=== PATIENT | male | born 1985 | race American Indian/Alaskan Native ===

== ENCOUNTER 2018-02-09 19:12 | Observation (INO) | payer MEDICAID ==
[2018-02-09 19:21] VITALS: BMI 25.0
--- NOTE | 2018-02-09 19:35 | ED PDOC ---
Arrival/HPI - General Chief Complaint: Psychiatric Evaluation Time Seen by Provider: 02/09/18 19:27 Historian: Patient - History of Present Illness Narrative History of Present Illness (Text): 02/09/18 19:32 32 year old male, no significant pmh, nkda, complaining of feeling suicidal and homocidal ideation today. Pt. stated that he has been feeling suicidal recently with homicidal ideation, no alcohol or drug abuse?, no auditory or visual hallucination, no chest pain or shortness of breath, no night sweat, no palpitation, no rash, no other medical or psychological complaints. Past Medical History - Provider Review Nursing Documentation Reviewed: Yes - Psychiatric Hx Substance Use: Yes Family/Social History - Physician Review Nursing Documentation Reviewed: Yes Family/Social History: Unknown Family HX Smoking Status: Heavy Smoker > 10 Cigarettes Daily Hx Alcohol Use: Yes Frequency of alcohol use: Daily Hx Substance Use: Yes Substance used: Coccaine, Marijuana, [place] Allergies/Home Meds Allergies/Adverse Reactions: Allergies shellfish derived Allergy (Verified 02/09/18 19:21) ANAPHYLAXIS Review of Systems - Review of Systems Constitutional: absent: Fatigue, Fevers Eyes: absent: Vision Changes ENT: absent: Hearing Changes Respiratory: absent: SOB, Cough Cardiovascular: absent: Chest Pain Gastrointestinal: absent: Abdominal Pain, Nausea, Vomiting Musculoskeletal: absent: Arthralgias, Back Pain Skin: absent: Rash, Pruritis Neurological: absent: Headache, Dizziness Psychiatric: Depression, Suicidal Ideation. absent: Anxiety Physical Exam - Systems Exam Head: Present: Atraumatic, Normocephalic Pupils: Present: PERRL Extroacular Muscles: Present: EOMI Conjunctiva: Present: Normal Mouth: Present: Moist Mucous Membranes Neck: Present: Normal Range of Motion Respiratory/Chest: Present: Clear to Auscultation, Good Air Exchange. No: Respiratory Distress, Accessory Muscle Use Cardiovascular: Present: Regular Rate and Rhythm, Normal S1, S2. No: Murmurs Abdomen: No: Tenderness, Distention, Peritoneal Signs, Rebound, Guarding Back: Present: Normal Inspection Upper Extremity: Present: Normal Inspection. No: Cyanosis, Edema Lower Extremity: Present: Normal Inspection. No: Edema Neurological: Present: GCS=15, Speech Normal, Motor Func Grossly Intact, Gait Normal, Memory Normal Skin: Present: Warm, Dry, Rashes (visible multiple cutting scar noted on the bilateral upper extremities and body), Normal Color Psychiatric: Present: Alert, Oriented x 3, Normal Insight, Normal Concentration , Suicidal Ideation, Homicidal Ideation Medical Decision Making ED Course and Treatment: 02/09/18 19:34 -labs -ekg -cxr -PES notified -One on One -Observe and reassess 02/09/18 19:38 -EKG: Sinus Tachycardia @ 111 BPM, early repolarization with non-specific ST changes on the V2-V4, no T wave inversion, no previous ekg available for comparison. EKG reviewed with Dr. Ambrosio and agreed on adding troponin -Chest xray: no active disease -Labs show no acute findings except 2308, negative troponin. Pt. has no cardiopulomn -Pending Urinalysis and UDS -Pt. can not be medically clear at this time, will need admission for IV hydration, 2000cc bolus IV ordered with potassium 20meq as the potassium is 3.4 -paging the hospitalist. 02/09/18 20:28 -I spoke to the medical service representative and Dr. Belle about this case, labs/radiology result discussed, they will admit to the hospitalist service and will follow up the care and any pending labs. - Lab Interpretations Lab Results: 02/09/18 19:20 02/09/18 19:20 Lab Results 02/09/18 19:20: Alcohol, Quantitative < 10 02/09/18 19:20: Salicylates < 1 L, Acetaminophen < 10.0 L 02/09/18 19:20: Sodium 135, Potassium 3.4 L, Chloride 99, Carbon Dioxide 28, Anion Gap 12, BUN 17, Creatinine 1.2, Est GFR ( Amer) > 60, Est GFR (Non- Af Amer) > 60, Random Glucose 88, Calcium 9.5, Total Bilirubin 2.0 H, AST 88 H, ALT 67 H, Alkaline Phosphatase 47, Lactate Dehydrogenase 842 H, Total Creatine Kinase 2308 H, CK-MB (CK-2) 15.4 H, CK-MB (CK-2) % 0.7 L, Troponin I < 0.01, Total Protein 7.1, Albumin 4.2, Globulin 2.8, Albumin/Globulin Ratio 1.5 02/09/18 19:20: WBC 10.5, RBC 5.07, Hgb 16.0, Hct 44.1, MCV 87.0, MCH 31.6, MCHC 36.3, RDW 12.9, Plt Count 239, MPV 10.1, Gran % 74.9 H, Lymph % (Auto) 16.0 L, [place] % (Auto) 7.3 H, Eos % (Auto) 1.6, Baso % (Auto) 0.2, Gran # 7.88 H , Lymph # (Auto) 1.7, [place] # (Auto) 0.8 H, Eos # (Auto) 0.2, Baso # (Auto) 0.02 - RAD Interpretation Radiology Orders: 02/09/18 19:31 CHEST PORTABLE [RAD] Stat Heavy Forging Machine Operator: Radiologist - EKG Interpretation EKG Interpretation (Text): 02/09/18 19:40 EKG: Sinus Tachycardia @ 111 BPM, early repolarization with non-specific ST changes on the V2-V4, no T wave inversion, no previous ekg available for comparison. Interpreted by ED Physician: Yes Type: 12 lead EKG Comparison: No previous EKG avail. - Medication Orders Current Medication Orders: Sodium Chloride (Sodium Chloride 0.9%) 1,000 mls @ 999 mls/hr IV .Q1H1M STA Stop: 02/09/18 21:21 Sodium Chloride (Sodium Chloride 0.9%) 1,000 mls @ 999 mls/hr IV .Q1H1M STA Stop: 02/09/18 21:21 - PA / LITHOGRAPHIC PRESS OPERATOR / Resident Statement /DO has reviewed & agrees with the documentation as recorded. Disposition/Present on Arrival - Present on Arrival Any Indicators Present on Arrival: No History of DVT/PE: No History of Uncontrolled Diabetes: No Urinary Catheter: No History of Decub. Ulcer: No History Surgical Site Infection Following: None - Disposition Have Diagnosis and Disposition been Completed?: Yes Diagnosis: Suicidal ideation, Rhabdomyolysis, Hypokalemia Disposition: HOSPITALIZED Disposition Time: 19:34 Patient Plan: Admission Patient Problems: Current Active Problems Problem Status Onset Rhabdomyolysis Acute Suicidal ideation Acute Condition: STABLE Referrals: Jack Regalado, [Primary Care Provider] - Follow up with primary Forms: [email or web address] ([place])
[2018-02-09 19:48] LABS: BASO # 0.02 K/mm3 (0.0-2.0); BASO % 0.2 % (0.0-3.0); EOS # 0.2 (0.0-0.7); EOS % 1.6 % (1.5-5.0); GRAN # 7.88 (1.4-6.5); GRAN % 74.9 % (50.0-68.0); LYMPH # 1.7 (1.2-3.4); MEAN CORPUSCULAR HEMOGLOBIN 31.6 pg (25.0-35.0); MEAN CORPUSCULAR HGB CONC 36.3 g/dl (31.0-37.0); MEAN PLATELET VOLUME 10.1 fl (7.0-11.0); MONO # 0.8 (0.1-0.6); MONO % 7.3 % (1.0-6.0); RBC 5.07 10^6/uL (3.5-6.1); RED CELL DISTRIBUTION WIDTH 12.9 % (11.5-14.5); WHITE BLOOD COUNT 10.5 10^3/ul (4.5-11.0)
[2018-02-09 19:56] LABS: ALB/GLOB RATIO 1.5 (1.1-1.8); ALBUMIN 4.2 g/dL (3.0-4.8); ALT/SGPT 67 U/L (7-56); AST/SGOT 88 U/L (17-59); BLOOD UREA NITROGEN 17 mg/dL (7-21); CALCIUM 9.5 mg/dL (8.4-10.5); GFR AFRICAN-AMERICAN > 60; GFR NON-AFRICAN AMERICAN > 60
[2018-02-09 19:57] LABS: ACETAMINOPHEN < 10.0 ug/ml (10.0-20.0); SALICYLATE < 1 mg/dL (2.0-20.0)
[2018-02-09 20:07] LABS: TROPONIN I < 0.01 ng/mL
[2018-02-09] MEDS ORDERED: Sodium Chloride 0.9% 1,000 ML IV STA ×2 (20:21)
[2018-02-09 20:22] LABS: CK MB% 0.7 % (2.5-3.0); CK-MB 15.4 ng/mL (0.0-3.6)
[2018-02-09] MEDS ORDERED: Potassium Chloride 20 mEq ER Tab PO STA ×2 (20:37→22:24)
[2018-02-09] MEDS: Oxycodone/Acetaminophen 5/325 mg Tab PO PRN (22:48)
--- NOTE | 2018-02-09 23:34 | CP.PCM.HP ---
<Thomas Walker - Last Filed: 02/10/18 04:13> History of Present Illness - History of Present Illness History of Present Illness: Medicine H&P: Dr. Belle Chief Complaint: Suicidal and Homicidal Ideations; Leg pain HPI: 32 year old male with no past medical history presented with suicidal and homocidal ideations. Patient states that he drank alcohol, snorted cocaine, smoked marijuana and started walking for 72 hours straight. Unfortunately no baseline functionality or mentation is available for the patient. History is limited 2/2 patient's mentation Review of Systems: 12 point ROS elicited but limited 2/2 to patient's mental status, negative except as per HPI Surgical History: Patient denies Medical History: Patient denies Allergies: Shellfish Social History: Admits to alcohol, tobacco, cocaine and marijuana Home Meds: Patient denies Family History: Patient denies PMD: None Present on Admission - Present on Admission Any Indicators Present on Admission: No Past Patient History - Past Social History Smoking Status: Heavy Smoker > 10 Cigarettes Daily - PSYCHIATRIC Hx Substance Use: Yes Meds Allergies/Adverse Reactions: Allergies Allergy/AdvReac Type Severity Reaction Status Date / Time shellfish derived Allergy ANAPHYLAXIS Verified 02/09/18 19:21 Physical Exam - Constitutional Appears: Unkempt, Agitated Additional comments: Patient exhibiting signs of extrapyramidal symptoms such as lip-smacking and twitching - Head Exam Head Exam: ATRAUMATIC, NORMAL INSPECTION, NORMOCEPHALIC - Eye Exam Eye Exam: EOMI, Normal appearance, PERRL Pupil Exam: NORMAL ACCOMODATION, PERRL - ENT Exam ENT Exam: Mucous Membranes Moist, Normal Exam - Neck Exam Neck exam: Positive for: Normal Inspection - Respiratory Exam Respiratory Exam: Clear to Auscultation Bilateral, NORMAL BREATHING PATTERN - Cardiovascular Exam Cardiovascular Exam: REGULAR RHYTHM - GI/Abdominal Exam GI & Abdominal Exam: Normal Bowel Sounds, Soft. absent: Tenderness - Extremities Exam Extremities exam: Positive for: normal inspection - Back Exam Back exam: NORMAL INSPECTION - Neurological Exam Neurological exam: Alert, CN II-XII Intact, Normal Gait, Oriented x3, Reflexes Normal - Psychiatric Exam Psychiatric exam: Normal Affect, Normal Mood - Skin Skin Exam: Dry, Intact, Normal Color, Warm Results - Vital Signs Recent Vital Signs: Last Vital Signs Temp 98.0 F 02/09/18 21:46 Pulse 107 H 02/09/18 21:46 Resp 18 02/09/18 21:46 BP 115/65 02/09/18 21:46 Pulse Ox 100 02/09/18 21:46 - Labs Result Diagrams: 02/09/18 19:20 02/09/18 19:20 Assessment & Plan - Assessment and Plan (Free Text) Assessment: 32 year old male presents with homicidal suicidal ideations. Labs revealed elevated CK indicative of rhabdomyolysis. Patient's renal function cannot be compared to a baseline, but creatinine is high normal at 1.2. UA showed ketones. Tox screen showed positive for marijuana but not cocaine, although patient admitted to cocaine use on interview. Patient's liver enzymes mildly elevated. Initial trope and EKG negative for AMI. Plan Rhabdomyolysis, possibly 2/2 exertion while intoxicated - NS @ 150 mls/hr; avoid nephrotoxic medications like toradol - Percocet PRN - Monitor renal function Cocaine Use - Serial tropes, EKG Homicidal/Suicidal Ideations - 1:1 - Psych Consult: Dr. Spencer Prophylaxis - Protonix/Lovenox <Isrrael Belle - Last Filed: 02/10/18 05:43> Results - Vital Signs Recent Vital Signs: Last Vital Signs Temp 97.8 F 02/10/18 00:14 Pulse 97 H 02/10/18 00:14 Resp 16 02/10/18 00:14 BP 110/61 02/10/18 00:14 Pulse Ox 98 02/09/18 21:51 - Labs Result Diagrams: 02/09/18 19:20 02/09/18 19:20 Labs: Laboratory Results - last 24 hr 02/09/18 02/09/18 23:10 23:10 Urine Color Yellow Urine Appearance Clear Urine pH 6.0 Ur Specific [place] 1.020 Urine Protein Negative Urine Glucose (UA) Negative Urine Ketones 15 H Urine Blood Negative Urine Nitrate Negative Urine Bilirubin Negative Urine Urobilinogen 0.2 Ur Leukocyte Esterase Negative Urine Opiates Screen Negative Urine Methadone Screen Negative Ur Barbiturates Screen Negative Ur Phencyclidine Scrn Negative Ur Amphetamines Screen Negative U Benzodiazepines Scrn Negative U Oth Cocaine Metabols Negative U Cannabinoids Screen Positive H Attending/Attestation - Attestation I have personally seen and examined this patient.: Yes I have fully participated in the care of the patient.: Yes I have reviewed all pertinent clinical information: Yes Notes (Text): 02/10/18 05:41 Patient was seen when he was in ISO room in the ER. Medical record was reviewed. Agree with history,physical examination, assessment and plan.
[2018-02-09 23:51] LABS: URINE BILIRUBIN NEGATIVE (NEGATIVE); URINE BLOOD NEGATIVE (NEGATIVE); URINE GLUCOSE (UA) NEGATIVE (NEGATIVE); URINE LEUKOCYTE ESTERASE NEGATIVE Leu/uL (NEGATIVE); URINE PROTEIN NEGATIVE mg/dL (<30 mg/dL); URINE UROBILINOGEN 0.2 E.U./dL (<1 E.U./dL)
[2018-02-09 23:53] LABS: URINE APPEARANCE CLEAR (CLEAR); URINE COLOR YELLOW (YELLOW)
[2018-02-10 00:16] LABS: BARBITURATES, UR NEGATIVE (NEGATIVE); BENZODIAZEPINES, UR NEGATIVE (NEGATIVE); OPIATES, UR NEGATIVE (NEGATIVE); PHENCYCLIDINE, UR NEGATIVE (NEGATIVE)
[2018-02-10] MEDS: Sodium Chloride 0.9% 1,000 ML IV SCH (01:26)
[2018-02-10] MEDS ORDERED: Pantoprazole 40 mg EC Tab PO SCH (06:00)
[2018-02-10 08:06] LABS: BASO # 0.03 K/mm3 (0.0-2.0); BASO % 0.4 % (0.0-3.0); EOS # 0.2 (0.0-0.7); EOS % 3.1 % (1.5-5.0); GRAN # 5.35 (1.4-6.5); GRAN % 71.5 % (50.0-68.0); HEMOGLOBIN 13.5 g/dL (14.0-18.0); LYMPH # 1.2 (1.2-3.4); LYMPH % 15.4 % (22.0-35.0); MEAN CELL VOLUME 88.5 fl (80.0-105.0); MEAN CORPUSCULAR HEMOGLOBIN 31.2 pg (25.0-35.0); MEAN CORPUSCULAR HGB CONC 35.2 g/dl (31.0-37.0); MEAN PLATELET VOLUME 9.7 fl (7.0-11.0); MONO # 0.7 (0.1-0.6); MONO % 9.6 % (1.0-6.0); RBC 4.33 10^6/uL (3.5-6.1); WHITE BLOOD COUNT 7.5 10^3/ul (4.5-11.0)
[2018-02-10] MEDS ORDERED: Potassium Chloride 20 mEq ER Tab PO ONE (08:17)
[2018-02-10 08:26] LABS: ALB/GLOB RATIO 1.3 (1.1-1.8); ALBUMIN 3.2 g/dL (3.0-4.8); ALT/SGPT 57 U/L (7-56); AST/SGOT 55 U/L (17-59); BLOOD UREA NITROGEN 14 mg/dL (7-21); CALCIUM 8.3 mg/dL (8.4-10.5); GFR AFRICAN-AMERICAN > 60; GFR NON-AFRICAN AMERICAN > 60
[2018-02-10 08:27] LABS: TROPONIN I < 0.01 ng/mL
--- NOTE | 2018-02-10 08:39 | RAD ---
HISTORY: medical clearance COMPARISON: No prior. FINDINGS: LUNGS: No active pulmonary disease. PLEURA: No significant pleural effusion identified, no pneumothorax apparent. CARDIOVASCULAR: Normal. OSSEOUS STRUCTURES: No significant abnormalities. VISUALIZED UPPER ABDOMEN: Normal. OTHER FINDINGS: None. IMPRESSION: No active disease. Concordant results with the preliminary interpretation rendered by the emergency department physician procedure.
[2018-02-10 08:43] LABS: CK-MB 11.4 ng/mL (0.0-3.6)
[2018-02-10] MEDS: Oxycodone/Acetaminophen 5/325 mg Tab PO PRN ×3 (10:50→19:54)
--- NOTE | 2018-02-10 10:50 | US ---
HISTORY: Leg pain and swelling. Evaluate for DVT PHYSICIAN(S): Luc Palma MD. TECHNIQUE: Duplex sonography and color-flow Doppler with graded compression were used to evaluate the deep venous systems of both lower extremities. FINDINGS: The visualized deep venous systems of both lower extremities are sonographically normal and compressible. Normal wave forms and augmentation are seen. There is no sonographic evidence for deep venous thrombosis in the visualized segments of both lower extremities. IMPRESSION: No sonographic evidence for deep venous thrombosis in the visualized segments of both lower extremities.
[2018-02-10] MEDS: Enoxaparin 40 mg Syringe SC SCH (10:53)
[2018-02-10 12:51] LABS: TROPONIN I < 0.01 ng/mL
[2018-02-10 12:54] LABS: CK MB% 0.9 % (2.5-3.0); CK-MB 8.8 ng/mL (0.0-3.6)
--- NOTE | 2018-02-10 13:08 | CT ---
PROCEDURE: CT Abdomen and Pelvis without intravenous contrast HISTORY: RLQ, RUQ, right inguinal pain COMPARISON: None. TECHNIQUE: Without contrast. Contrast Dose: Radiation dose: Total exam DLP = Total exam DLP = 421 mGy-cm. This CT exam was performed using one or more of the following dose reduction techniques: Automated exposure control, adjustment of the mA and/or kV according to patient size, and/or use of iterative reconstruction technique. FINDINGS: LOWER THORAX: Unremarkable. LIVER: Unremarkable. No gross lesion or ductal dilatation. GALLBLADDER AND BILE DUCTS: Unremarkable. PANCREAS: Unremarkable. No gross lesion or ductal dilatation. SPLEEN: Unremarkable. ADRENALS: Unremarkable. No mass. KIDNEYS AND URETERS: Unremarkable. No hydronephrosis. No solid mass. VASCULATURE: Unremarkable. No aortic aneurysm. BOWEL: Evaluation of the bowel and the appendix is limited by lack of IV and oral contrast as well as very little abdominal fat. A repeat study with oral and IV contrast may be indicated if there is a strong clinical suspicion of colitis or appendicitis APPENDIX: Not visualize PERITONEUM: Unremarkable. No free fluid. No free air. LYMPH NODES: Unremarkable. No enlarged lymph nodes. BLADDER: Unremarkable. REPRODUCTIVE: Unremarkable. BONES: No acute fracture. OTHER FINDINGS: None. IMPRESSION: Evaluation of the bowel and the appendix is limited by lack of IV and oral contrast as well as very little abdominal fat. A repeat study with oral and IV contrast may be indicated if there is a strong clinical suspicion of colitis or appendicitis There is no evidence of urolithiasis
--- NOTE | 2018-02-10 14:00 | CP.PCM.PN ---
<Romeo Badillo - Last Filed: 02/10/18 13:55> Subjective - Date & Time of Evaluation Date of Evaluation: 02/10/18 (q) Time of Evaluation: 13:57 - Subjective Subjective: Patient seen and examined this AM. Patient reportedly agitated this AM locking himself in bathroom. Patient reports bowel movements this AM that were soft to liquid. Reports RLQ and RUQ pain that is constant, dull/sharp at times. Patient indicates he is able to tolerate PO intake and is passing stool and gas. Patient denies chest pain, shortness of breath, muscle cramping, nausea, vomiting. Objective - Vital Signs/Intake and Output Vital Signs (last 24 hours): Temp Pulse Resp BP Pulse Ox 97.8 F 97 H 16 110/61 98 02/10/18 00:14 02/10/18 00:14 02/10/18 00:14 02/10/18 00:14 02/09/18 21:51 - Medications Medications: Current Medications Acetaminophen (Tylenol 325mg Tab) 650 mg PO Q4H PRN PRN Reason: Pain, moderate (4-7) Enoxaparin Sodium (Lovenox) 40 mg SC DAILY [facility] PRN Reason: Protocol Last Admin: 02/10/18 10:53 Dose: Not Given Sodium Chloride (Sodium Chloride 0.9%) 1,000 mls @ 150 mls/hr IV .Q6H40M [facility] Last Admin: 02/10/18 01:26 Dose: 150 mls/hr Oxycodone/Acetaminophen (Percocet 5/325 Mg Tab) 1 tab PO Q4H PRN PRN Reason: Pain, severe (8-10) Stop: 02/12/18 22:25 Last Admin: 02/10/18 10:50 Dose: 1 tab Pantoprazole Sodium (Protonix Ec Tab) 40 mg PO 0600 [facility] - Labs Labs: 02/10/18 07:30 02/10/18 07:30 - Head Exam Head Exam: ATRAUMATIC, NORMAL INSPECTION, NORMOCEPHALIC - Eye Exam Eye Exam: EOMI, PERRL - ENT Exam ENT Exam: Mucous Membranes Moist - Respiratory Exam Respiratory Exam: Clear to Ausculation Bilateral, NORMAL BREATHING PATTERN. absent: Rhonchi, Wheezes - Cardiovascular Exam Cardiovascular Exam: REGULAR RHYTHM, +S1, +S2 - GI/Abdominal Exam GI & Abdominal Exam: Soft, Tenderness (RLQ, RUQ), Normal Bowel Sounds. absent: Firm, Guarding - Extremities Exam Extremities Exam: absent: Calf Tenderness, Pedal Edema - Neurological Exam Neurological Exam: Alert, Awake, Normal Gait, Oriented x3 - Psychiatric Exam Psychiatric exam: Homicidal Ideation, Suicidal Ideation - Skin Skin Exam: Dry, Warm Assessment and Plan - Assessment and Plan (Free Text) Assessment: 32 year old male with PMH of asthma who presented to [facility] ED with SI and HI. Patient was evaluated to have elevated CK and admitted and treated for rhabdomyolysis. Patient with positive THC on UDS and cocaine on admitting interview. Patient laboratory results trending toward normal. patient complaining of right sided abdominal pain, abdominal/pelvis CT preformed does not rule out colitis. Plan: Right Abdominal Pain Details: - Patient reports recent history of right sided abdominal pain - Abd and Pelvis CT cannot rule out appendicitis and/or coliits without contrast - Patient reports appendectomy previously - Patient passing stool, flatus, able to tolerate PO intake Plan: - Continue to monitor clinically - General Surgery consult Rhabdomyolysis Details: - Elevated CK on admission, trending downward - Cr function slightly elevated on admission, trending downward - IVF administration overnight Plan: - Continue IVF Homicidal and Suicidal Ideations - continue 1:1 observation - Psych conulted, follow up recs <Adilia Turner - Last Filed: 02/10/18 14:38> Objective - Vital Signs/Intake and Output Vital Signs (last 24 hours): Temp Pulse Resp BP Pulse Ox 97.8 F 97 H 16 110/61 98 02/10/18 00:14 02/10/18 00:14 02/10/18 00:14 02/10/18 00:14 02/09/18 21:51 - Medications Medications: Current Medications Acetaminophen (Tylenol 325mg Tab) 650 mg PO Q4H PRN PRN Reason: Pain, moderate (4-7) Enoxaparin Sodium (Lovenox) 40 mg SC DAILY [facility] PRN Reason: Protocol Last Admin: 02/10/18 10:53 Dose: Not Given Sodium Chloride (Sodium Chloride 0.9%) 1,000 mls @ 150 mls/hr IV .Q6H40M [facility] Last Admin: 02/10/18 01:26 Dose: 150 mls/hr Oxycodone/Acetaminophen (Percocet 5/325 Mg Tab) 1 tab PO Q4H PRN PRN Reason: Pain, severe (8-10) Stop: 02/12/18 22:25 Last Admin: 02/10/18 10:50 Dose: 1 tab Pantoprazole Sodium (Protonix Ec Tab) 40 mg PO 0600 [facility] - Labs Labs: 02/10/18 07:30 02/10/18 07:30 Attending/Attestation - Attestation I have personally seen and examined this patient.: Yes I have fully participated in the care of the patient.: Yes I have reviewed all pertinent clinical information, including history, physical exam and plan: Yes Notes (Text): 02/10/18 14:38 Medical record note made by the resident after discussion with my direction and input after the patient was personally seen and examined by me. I have reviewed the chart and agree that the record accurately reflects by personal performance of the history, physical exam, data review, and medical decision-making, in the course for the patient. I have also personally directed the plan of care.
--- NOTE | 2018-02-10 14:31 | CP.PCM.CON ---
Addendum entered and electronically signed by Thomas Dacosta DO 02/11/18 06:28: Colitis: Pt has abd pain and diarrhea -recommend ABX [place] [facility] [address] Original Note: <JosephAlexeyn - Last Filed: 02/10/18 14:32> History of Present Illness - History of Present Illness History of Present Illness: 32 year old male with a past medical history of asthma who comes into the hospital presenting with homicidal and suicidal ideation. The patient reports that he has right upper and right lower quadrant pain for the past couple of days. He describes the pain as sharp in nature with no radiation. The patient denies any fevers, chills, nausea, vomiting, lightheaded, dizziness, change in vision, headaches, diarrhea, constipation, or any other complaints. Past medical history: Asthma, clubfoot Past surgical history: Bilateral foot surgeries Allergies: Haloperidol, iodine, shellfish Social history: Current marijuana, joyce, and cocaine abuser. Social drinker. Medications: Albuterol pump Review of Systems - Constitutional Constitutional: As Per HPI - EENT Eyes: As Per HPI Nose/Mouth/Throat: As Per HPI - Cardiovascular Cardiovascular: As Per HPI - Respiratory Respiratory: As Per HPI - Gastrointestinal Gastrointestinal: As Per HPI - Genitourinary Genitourinary: As Per HPI - Musculoskeletal Musculoskeletal: As Per HPI - Integumentary Integumentary: As Per HPI - Neurological Neurological: As Per HPI - Psychiatric Psychiatric: As Per HPI - Endocrine Endocrine: As Per HPI Past Patient History - Past Social History Smoking Status: Heavy Smoker > 10 Cigarettes Daily - CARDIAC Hx Cardiac Disorders: No Hx Hypertension: No - PULMONARY Other/Comment: smoker - NEUROLOGICAL HX Cerebrovascular Accident: No Hx Seizures: No - HEENT Hx HEENT Problems: No - RENAL Hx Chronic Kidney Disease: No - ENDOCRINE/METABOLIC Hx Endocrine Disorders: No - HEMATOLOGICAL/ONCOLOGICAL Hx Cancer: No Hx Human Immunodeficiency Virus (HIV): No - INTEGUMENTARY Hx Dermatological Problems: No - MUSCULOSKELETAL/RHEUMATOLOGICAL Hx Falls: Yes - GASTROINTESTINAL Hx Gastrointestinal Disorders: No - GENITOURINARY/GYNECOLOGICAL Hx Sexually Transmitted Disorders: No - PSYCHIATRIC Hx Substance Use: Yes - SURGICAL HISTORY Hx Surgeries: Yes Other/Comment: bilateral foot surgery - ANESTHESIA Hx Anesthesia: Yes Hx Anesthesia Reactions: No Meds Allergies/Adverse Reactions: Allergies Allergy/AdvReac Type Severity Reaction Status Date / Time haloperidol [From Haldol] Allergy SHORTNESS Verified 02/09/18 16:45 OF BREATH iodine Allergy RASH Verified 02/09/18 16:45 shellfish derived Allergy ANAPHYLAXIS Verified 02/09/18 19:21 - Medications Medications: Current Medications Acetaminophen (Tylenol 325mg Tab) 650 mg PO Q4H PRN PRN Reason: Pain, moderate (4-7) Enoxaparin Sodium (Lovenox) 40 mg SC DAILY [facility] PRN Reason: Protocol Last Admin: 02/10/18 10:53 Dose: Not Given Sodium Chloride (Sodium Chloride 0.9%) 1,000 mls @ 150 mls/hr IV .Q6H40M [facility] Last Admin: 02/10/18 01:26 Dose: 150 mls/hr Oxycodone/Acetaminophen (Percocet 5/325 Mg Tab) 1 tab PO Q4H PRN PRN Reason: Pain, severe (8-10) Stop: 02/12/18 22:25 Last Admin: 02/10/18 10:50 Dose: 1 tab Pantoprazole Sodium (Protonix Ec Tab) 40 mg PO 0600 [facility] Physical Exam - Head Exam Head Exam: ATRAUMATIC, NORMAL INSPECTION, NORMOCEPHALIC - Eye Exam Eye Exam: EOMI - ENT Exam ENT Exam: Mucous Membranes Moist - Respiratory Exam Respiratory Exam: NORMAL BREATHING PATTERN - Cardiovascular Exam Cardiovascular Exam: REGULAR RHYTHM - GI/Abdominal Exam GI & Abdominal Exam: Normal Bowel Sounds, Soft - Extremities Exam Additional comments: Club foot bilateral - Neurological Exam Neurological exam: Alert, CN II-XII Intact - Psychiatric Exam Psychiatric exam: Normal Affect, Normal Mood - Skin Skin Exam: Dry Results - Vital Signs Recent Vital Signs: Last Vital Signs Temp 97.8 F 02/10/18 00:14 Pulse 97 H 02/10/18 00:14 Resp 16 02/10/18 00:14 BP 110/61 02/10/18 00:14 Pulse Ox 98 02/09/18 21:51 - Labs Result Diagrams: 02/10/18 07:30 02/10/18 07:30 Labs: Laboratory Results - last 24 hr 02/09/18 02/09/18 02/10/18 23:10 23:10 07:30 WBC 7.5 D RBC 4.33 Hgb 13.5 L D Hct 38.3 L MCV 88.5 MCH 31.2 MCHC 35.2 RDW 13.0 Plt Count 177 MPV 9.7 Gran % 71.5 H Lymph % (Auto) 15.4 L [place] % (Auto) 9.6 H Eos % (Auto) 3.1 Baso % (Auto) 0.4 Gran # 5.35 Lymph # (Auto) 1.2 [place] # (Auto) 0.7 H Eos # (Auto) 0.2 Baso # (Auto) 0.03 Sodium Potassium Chloride Carbon Dioxide Anion Gap BUN Creatinine Est GFR ( Amer) Est GFR (Non-Af Amer) Random Glucose Calcium Phosphorus Magnesium Total Bilirubin AST ALT Alkaline Phosphatase Lactate Dehydrogenase Total Creatine Kinase CK-MB (CK-2) CK-MB (CK-2) % Troponin I Total Protein Albumin Globulin Albumin/Globulin Ratio Urine Color Yellow Urine Appearance Clear Urine pH 6.0 Ur Specific [place] 1.020 Urine Protein Negative Urine Glucose (UA) Negative Urine Ketones 15 H Urine Blood Negative Urine Nitrate Negative Urine Bilirubin Negative Urine Urobilinogen 0.2 Ur Leukocyte Esterase Negative Urine Opiates Screen Negative Urine Methadone Screen Negative Ur Barbiturates Screen Negative Ur Phencyclidine Scrn Negative Ur Amphetamines Screen Negative U Benzodiazepines Scrn Negative U Oth Cocaine Metabols Negative U Cannabinoids Screen Positive H 02/10/18 02/10/18 02/10/18 07:30 07:30 12:30 WBC RBC Hgb Hct MCV MCH MCHC RDW Plt Count MPV Gran % Lymph % (Auto) [place] % (Auto) Eos % (Auto) Baso % (Auto) Gran # Lymph # (Auto) [place] # (Auto) Eos # (Auto) Baso # (Auto) Sodium 138 Potassium 3.8 Chloride 108 H Carbon Dioxide 24 Anion Gap 10 BUN 14 Creatinine 0.9 Est GFR ( Amer) > 60 Est GFR (Non-Af Amer) > 60 Random Glucose 87 Calcium 8.3 L Phosphorus 2.8 Magnesium 2.0 Total Bilirubin 1.9 H AST 55 ALT 57 H Alkaline Phosphatase 34 L D Lactate Dehydrogenase 648 573 Total Creatine Kinase 1180 H 1004 H CK-MB (CK-2) 11.4 H 8.8 H CK-MB (CK-2) % 1.0 L 0.9 L Troponin I < 0.01 < 0.01 Total Protein 5.6 L Albumin 3.2 Globulin 2.4 Albumin/Globulin Ratio 1.3 Urine Color Urine Appearance Urine pH Ur Specific [place] Urine Protein Urine Glucose (UA) Urine Ketones Urine Blood Urine Nitrate Urine Bilirubin Urine Urobilinogen Ur Leukocyte Esterase Urine Opiates Screen Urine Methadone Screen Ur Barbiturates Screen Ur Phencyclidine Scrn Ur Amphetamines Screen U Benzodiazepines Scrn U Oth Cocaine Metabols U Cannabinoids Screen Assessment & Plan - Assessment and Plan (Free Text) Assessment: 32 year old male with questionable abdominal ct scan for possible appendicitis. Plan: -Abdominal pain likely secondary to aleve intake (over 10 pills a day) -Patient appendix removed 2000. -No further intervention from surgery at this time. Feel free to re-consult if necessary. Will discuss with Dr. Mead <Thomas Dacosta - Last Filed: 02/10/18 15:10> History of Present Illness - History of Present Illness History of Present Illness: Consult note for surgery Pt reports he has been taking upto 10 pills of Alleve a day for about a month for chronic feet pain from club feet surgery. Reports melena and black watery stool. Started to have abd pain 2 days ago. Denies hematochezia, hematemesis, dysuria, reflux. Surgery is consulted to r/o appendicitis and colitis based on the CT report. CT reads unvisualized appendix because of lack of contrast. Pt had h/o appendectomy. Meds - Medications Medications: Current Medications Acetaminophen (Tylenol 325mg Tab) 650 mg PO Q4H PRN PRN Reason: Pain, moderate (4-7) Enoxaparin Sodium (Lovenox) 40 mg SC DAILY [facility] PRN Reason: Protocol Last Admin: 02/10/18 10:53 Dose: Not Given Sodium Chloride (Sodium Chloride 0.9%) 1,000 mls @ 150 mls/hr IV .Q6H40M [facility] Last Admin: 02/10/18 01:26 Dose: 150 mls/hr Oxycodone/Acetaminophen (Percocet 5/325 Mg Tab) 1 tab PO Q4H PRN PRN Reason: Pain, severe (8-10) Stop: 02/12/18 22:25 Last Admin: 02/10/18 10:50 Dose: 1 tab Pantoprazole Sodium (Protonix Ec Tab) 40 mg PO 0600 [facility] Results - Vital Signs Recent Vital Signs: Last Vital Signs Temp 97.8 F 02/10/18 00:14 Pulse 97 H 02/10/18 00:14 Resp 16 02/10/18 00:14 BP 110/61 02/10/18 00:14 Pulse Ox 98 02/09/18 21:51 - Labs Result Diagrams: 02/10/18 07:30 02/10/18 07:30 Labs: Laboratory Results - last 24 hr 02/09/18 02/09/18 02/10/18 23:10 23:10 07:30 WBC 7.5 D RBC 4.33 Hgb 13.5 L D Hct 38.3 L MCV 88.5 MCH 31.2 MCHC 35.2 RDW 13.0 Plt Count 177 MPV 9.7 Gran % 71.5 H Lymph % (Auto) 15.4 L [place] % (Auto) 9.6 H Eos % (Auto) 3.1 Baso % (Auto) 0.4 Gran # 5.35 Lymph # (Auto) 1.2 [place] # (Auto) 0.7 H Eos # (Auto) 0.2 Baso # (Auto) 0.03 Sodium Potassium Chloride Carbon Dioxide Anion Gap BUN Creatinine Est GFR ( Amer) Est GFR (Non-Af Amer) Random Glucose Calcium Phosphorus Magnesium Total Bilirubin AST ALT Alkaline Phosphatase Lactate Dehydrogenase Total Creatine Kinase CK-MB (CK-2) CK-MB (CK-2) % Troponin I Total Protein Albumin Globulin Albumin/Globulin Ratio Urine Color Yellow Urine Appearance Clear Urine pH 6.0 Ur Specific [place] 1.020 Urine Protein Negative Urine Glucose (UA) Negative Urine Ketones 15 H Urine Blood Negative Urine Nitrate Negative Urine Bilirubin Negative Urine Urobilinogen 0.2 Ur Leukocyte Esterase Negative Urine Opiates Screen Negative Urine Methadone Screen Negative Ur Barbiturates Screen Negative Ur Phencyclidine Scrn Negative Ur Amphetamines Screen Negative U Benzodiazepines Scrn Negative U Oth Cocaine Metabols Negative U Cannabinoids Screen Positive H 02/10/18 02/10/18 02/10/18 07:30 07:30 12:30 WBC RBC Hgb Hct MCV MCH MCHC RDW Plt Count MPV Gran % Lymph % (Auto) [place] % (Auto) Eos % (Auto) Baso % (Auto) Gran # Lymph # (Auto) [place] # (Auto) Eos # (Auto) Baso # (Auto) Sodium 138 Potassium 3.8 Chloride 108 H Carbon Dioxide 24 Anion Gap 10 BUN 14 Creatinine 0.9 Est GFR ( Amer) > 60 Est GFR (Non-Af Amer) > 60 Random Glucose 87 Calcium 8.3 L Phosphorus 2.8 Magnesium 2.0 Total Bilirubin 1.9 H AST 55 ALT 57 H Alkaline Phosphatase 34 L D Lactate Dehydrogenase 648 573 Total Creatine Kinase 1180 H 1004 H CK-MB (CK-2) 11.4 H 8.8 H CK-MB (CK-2) % 1.0 L 0.9 L Troponin I < 0.01 < 0.01 Total Protein 5.6 L Albumin 3.2 Globulin 2.4 Albumin/Globulin Ratio 1.3 Urine Color Urine Appearance Urine pH Ur Specific [place] Urine Protein Urine Glucose (UA) Urine Ketones Urine Blood Urine Nitrate Urine Bilirubin Urine Urobilinogen Ur Leukocyte Esterase Urine Opiates Screen Urine Methadone Screen Ur Barbiturates Screen Ur Phencyclidine Scrn Ur Amphetamines Screen U Benzodiazepines Scrn U Oth Cocaine Metabols U Cannabinoids Screen Assessment & Plan - Assessment and Plan (Free Text) Assessment: Abdominal pain and diarrhea, melena likely 2/2 excessive NSAIDS use. Pt reports h/o appendectomy. No surgery indicated at this time. Monitor H/H Stop NSAIDs use Will DW Dr. Mead <Scar Mead - Last Filed: 02/11/18 20:19> Results - Vital Signs Recent Vital Signs: Last Vital Signs Temp 97.9 F 02/11/18 13:49 Pulse 82 02/11/18 13:49 Resp 18 02/11/18 13:49 BP 113/62 02/11/18 13:49 Pulse Ox 99 02/11/18 13:49 - Labs Result Diagrams: 02/11/18 06:20 02/11/18 06:20 Labs: Laboratory Results - last 24 hr 02/10/18 02/11/18 02/11/18 20:54 06:20 06:20 WBC 5.4 D RBC 4.28 Hgb 13.1 L Hct 38.2 L MCV 89.3 MCH 30.6 MCHC 34.3 RDW 13.2 Plt Count 191 MPV 9.7 Gran % 56.9 Lymph % (Auto) 29.3 [place] % (Auto) 8.4 H Eos % (Auto) 5.0 Baso % (Auto) 0.4 Gran # 3.05 Lymph # (Auto) 1.6 [place] # (Auto) 0.5 Eos # (Auto) 0.3 Baso # (Auto) 0.02 Sodium 139 Potassium 3.9 Chloride 108 H Carbon Dioxide 26 Anion Gap 10 BUN 10 Creatinine 1.0 Est GFR ( Amer) > 60 Est GFR (Non-Af Amer) > 60 Random Glucose 96 Calcium 8.5 Total Bilirubin 0.3 AST 34 ALT 49 Alkaline Phosphatase 36 L Lactate Dehydrogenase 536 Total Creatine Kinase 736 H CK-MB (CK-2) 5.9 H CK-MB (CK-2) % 0.8 L Troponin I < 0.01 Total Protein 5.6 L Albumin 3.2 Globulin 2.5 Albumin/Globulin Ratio 1.3 Attending/Attestation - Attestation I have personally seen and examined this patient.: Yes I have fully participated in the care of the patient.: Yes I have reviewed all pertinent clinical information: Yes Notes (Text): Pt was seen and examined at bedside Agree with above note and assessment Pt with abdominal pain and Diarrhea for 2 day Abdominal tenderness mild Labs and radiology reviewed Ass: Enteritis or colitis Plan : C.w IV antibiotics NG tube if vomiting GI consult Plan d.w pt in detail Risk and benefit explained in detail.
--- NOTE | 2018-02-10 15:29 | CP.PCM.PCO ---
Addendum Addendum: 02/10/18 15:27 pt was in the bathroom for prolonged times this technical document writer attempted to evaluate pt twice but unsuccessfully d/w attending pt is currently on 1:1 will evaluate pt at the morning pt is synthetic drug user, was in [place] on 02/09/18, was d/c pt came to [facility] looking for admission.
--- NOTE | 2018-02-10 20:28 | CARD ---
APPROVED REPORT EKG Measurement Heart [id number] <Conclusion> Sinus rhythm with marked sinus arrhythmia Early repolarization Otherwise normal ECG
[2018-02-10 21:19] LABS: TROPONIN I < 0.01 ng/mL
[2018-02-10 21:24] LABS: CK MB% 0.8 % (2.5-3.0); CK-MB 5.9 ng/mL (0.0-3.6)
[2018-02-11] MEDS: Oxycodone/Acetaminophen 5/325 mg Tab PO PRN (05:49)
[2018-02-11 06:57] LABS: BASO # 0.02 K/mm3 (0.0-2.0); BASO % 0.4 % (0.0-3.0); EOS # 0.3 (0.0-0.7); GRAN # 3.05 (1.4-6.5); GRAN % 56.9 % (50.0-68.0); HEMOGLOBIN 13.1 g/dL (14.0-18.0); LYMPH # 1.6 (1.2-3.4); LYMPH % 29.3 % (22.0-35.0); MEAN CELL VOLUME 89.3 fl (80.0-105.0); MEAN CORPUSCULAR HEMOGLOBIN 30.6 pg (25.0-35.0); MEAN CORPUSCULAR HGB CONC 34.3 g/dl (31.0-37.0); MEAN PLATELET VOLUME 9.7 fl (7.0-11.0); MONO # 0.5 (0.1-0.6); MONO % 8.4 % (1.0-6.0); RBC 4.28 10^6/uL (3.5-6.1); RED CELL DISTRIBUTION WIDTH 13.2 % (11.5-14.5); WHITE BLOOD COUNT 5.4 10^3/ul (4.5-11.0)
[2018-02-11 07:43] LABS: ALB/GLOB RATIO 1.3 (1.1-1.8); ALBUMIN 3.2 g/dL (3.0-4.8); ALT/SGPT 49 U/L (7-56); AST/SGOT 34 U/L (17-59); BLOOD UREA NITROGEN 10 mg/dL (7-21); CALCIUM 8.5 mg/dL (8.4-10.5); GFR AFRICAN-AMERICAN > 60; GFR NON-AFRICAN AMERICAN > 60
[2018-02-11] MEDS: Sodium Chloride 0.9% 1,000 ML IV SCH (08:00)
[2018-02-11 08:12] VITALS: TEMP 97.9
--- NOTE | 2018-02-11 09:11 | CP.PCM.PN ---
<Malena Mejía - Last Filed: 02/11/18 09:07> Subjective - Date & Time of Evaluation Date of Evaluation: 02/11/18 Time of Evaluation: 09:07 - Subjective Subjective: Surgery: Dr. Mead Pt seen and examined. No acute overnight events. States he is feeling better but abdominal pain is still present. Pain comes and goes with food. Denies N/V, F/C. Objective - Vital Signs/Intake and Output Vital Signs (last 24 hours): Temp Pulse Resp BP Pulse Ox 97.9 F 74 20 107/79 100 02/11/18 06:00 02/11/18 06:00 02/11/18 06:00 02/11/18 06:00 02/11/18 06:00 Intake and Output: 02/11/18 02/11/18 06:59 18:59 Intake Total 480 0 Balance 480 0 - Medications Medications: Current Medications Acetaminophen (Tylenol 325mg Tab) 650 mg PO Q4H PRN PRN Reason: Pain, moderate (4-7) Enoxaparin Sodium (Lovenox) 40 mg SC DAILY [facility] PRN Reason: Protocol Last Admin: 02/10/18 10:53 Dose: Not Given Sodium Chloride (Sodium Chloride 0.9%) 1,000 mls @ 150 mls/hr IV .Q6H40M [facility] Last Admin: 02/10/18 01:26 Dose: 150 mls/hr Oxycodone/Acetaminophen (Percocet 5/325 Mg Tab) 1 tab PO Q4H PRN PRN Reason: Pain, severe (8-10) Stop: 02/12/18 22:25 Last Admin: 02/11/18 05:49 Dose: 1 tab Pantoprazole Sodium (Protonix Ec Tab) 40 mg PO 0600 [facility] Last Admin: 02/11/18 05:49 Dose: 40 mg - Labs Labs: 02/11/18 06:20 02/11/18 06:20 - Constitutional Appears: No Acute Distress - Head Exam Head Exam: ATRAUMATIC, NORMOCEPHALIC - Eye Exam Eye Exam: Normal appearance - ENT Exam ENT Exam: Mucous Membranes Moist - Respiratory Exam Respiratory Exam: NORMAL BREATHING PATTERN - Cardiovascular Exam Cardiovascular Exam: RRR - GI/Abdominal Exam GI & Abdominal Exam: Soft, Tenderness (LUQ). absent: Distended, Guarding - Neurological Exam Neurological Exam: Alert, Awake, Oriented x3 - Skin Skin Exam: Dry, Warm Assessment and Plan - Assessment and Plan (Free Text) Assessment: 32M with abdominal pain; likely secondary to colitis Plan: - cont to monitor - no plan for surgical intervention at this time - d/w Dr. [place] Mejía, PGY-3 <Scar Mead - Last Filed: 02/11/18 20:23> Objective - Vital Signs/Intake and Output Vital Signs (last 24 hours): Temp Pulse Resp BP Pulse Ox 97.9 F 82 18 113/62 99 02/11/18 13:49 02/11/18 13:49 02/11/18 13:49 02/11/18 13:49 02/11/18 13:49 Intake and Output: 02/11/18 02/12/18 18:59 06:59 Intake Total 0 Balance 0 - Labs Labs: 02/11/18 06:20 02/11/18 06:20 Attending/Attestation - Attestation I have fully participated in the care of the patient.: Yes I have reviewed all pertinent clinical information, including history, physical exam and plan: Yes Notes (Text): Pt improved clinically Pt was discharged home before rounds PO antibiotics f.u as out pt with PMD
--- NOTE | 2018-02-11 10:06 | CP.PCM.PN ---
Subjective - Date & Time of Evaluation Date of Evaluation: 02/11/18 Time of Evaluation: 10:03 - Subjective Subjective: Patient seen and examined this AM. No acute events reported overnight. Patient reports continued abdominal discomfort and diarrhea like stool x3 over past 24 hours. Reports passing flatus, tolerating diet. Patient CT scan showing suspected colitis. Patient denies shortness of breath, chest pain, fever, chills , vomiting, bright red blood per rectum. Objective - Vital Signs/Intake and Output Vital Signs (last 24 hours): Temp Pulse Resp BP Pulse Ox 97.9 F 74 20 107/79 100 02/11/18 06:00 02/11/18 06:00 02/11/18 06:00 02/11/18 06:00 02/11/18 06:00 Intake and Output: 02/11/18 02/11/18 06:59 18:59 Intake Total 480 0 Balance 480 0 - Medications Medications: Current Medications Acetaminophen (Tylenol 325mg Tab) 650 mg PO Q4H PRN PRN Reason: Pain, moderate (4-7) Enoxaparin Sodium (Lovenox) 40 mg SC DAILY [facility] PRN Reason: Protocol Last Admin: 02/10/18 10:53 Dose: Not Given Oxycodone/Acetaminophen (Percocet 5/325 Mg Tab) 1 tab PO Q4H PRN PRN Reason: Pain, severe (8-10) Stop: 02/12/18 22:25 Last Admin: 02/11/18 05:49 Dose: 1 tab Pantoprazole Sodium (Protonix Ec Tab) 40 mg PO 0600 [facility] Last Admin: 02/11/18 05:49 Dose: 40 mg - Labs Labs: 02/11/18 06:20 02/11/18 06:20 - Constitutional Appears: No Acute Distress - Head Exam Head Exam: ATRAUMATIC, NORMAL INSPECTION, NORMOCEPHALIC - Eye Exam Eye Exam: EOMI, PERRL - Respiratory Exam Respiratory Exam: Clear to Ausculation Bilateral, NORMAL BREATHING PATTERN. absent: Rales, Rhonchi, Wheezes, Stridor - Cardiovascular Exam Cardiovascular Exam: REGULAR RHYTHM, +S1, +S2 - GI/Abdominal Exam GI & Abdominal Exam: Soft, Tenderness (right lower quadrant, right upper quadrant - improved from previous exam ), Normal Bowel Sounds - Extremities Exam Extremities Exam: Full ROM, Normal Inspection. absent: Calf Tenderness, Pedal Edema - Neurological Exam Neurological Exam: Alert, Awake, Normal Gait, Oriented x3 - Psychiatric Exam Psychiatric exam: Normal Mood. absent: Agitated - Skin Skin Exam: Dry, Warm Additional comments: multiple old scars resembling cutting with knife over body
[2018-02-11] MEDS: Enoxaparin 40 mg Syringe SC SCH (10:07)
[2018-02-11 13:50] VITALS: BP 113/62; PULSE 82; RESP 18; O2SAT 99
--- NOTE | 2018-02-11 14:20 | CP.PCM.DIS ---
<Romeo Badillo - Last Filed: 02/11/18 14:10> Provider - Provider Date of Admission: 02/09/18 20:27 Attending physician: Adilia Turner MD Consults: Psych: Dr. Cedillo [facility] Surgery: Dr. Rasmussen Time Spent in preparation of Discharge (in minutes): 40 Diagnosis - Discharge Diagnosis (1) Hypokalemia Status: Acute (2) Rhabdomyolysis Status: Acute (3) Aggressive behavior Status: Acute (4) Substance abuse Status: Chronic Hospital Course - Lab Results Lab Results: Most Recent Lab Values WBC 5.4 10^3/ul (4.5-11.0) D 02/11/18 06:20 RBC 4.28 10^6/uL (3.5-6.1) 02/11/18 06:20 Hgb 13.1 g/dL (14.0-18.0) L 02/11/18 06:20 Hct 38.2 % (42.0-52.0) L 02/11/18 06:20 MCV 89.3 fl (80.0-105.0) 02/11/18 06:20 MCH 30.6 pg (25.0-35.0) 02/11/18 06:20 MCHC 34.3 g/dl (31.0-37.0) 02/11/18 06:20 RDW 13.2 % (11.5-14.5) 02/11/18 06:20 Plt Count 191 10^3/uL (120.0-450.0) 02/11/18 06:20 MPV 9.7 fl (7.0-11.0) 02/11/18 06:20 Gran % 56.9 % (50.0-68.0) 02/11/18 06:20 Lymph % (Auto) 29.3 % (22.0-35.0) 02/11/18 06:20 [place] % (Auto) 8.4 % (1.0-6.0) H 02/11/18 06:20 Eos % (Auto) 5.0 % (1.5-5.0) 02/11/18 06:20 Baso % (Auto) 0.4 % (0.0-3.0) 02/11/18 06:20 Gran # 3.05 (1.4-6.5) 02/11/18 06:20 Lymph # (Auto) 1.6 (1.2-3.4) 02/11/18 06:20 [place] # (Auto) 0.5 (0.1-0.6) 02/11/18 06:20 Eos # (Auto) 0.3 (0.0-0.7) 02/11/18 06:20 Baso # (Auto) 0.02 K/mm3 (0.0-2.0) 02/11/18 06:20 Sodium 139 mmol/L (132-148) 02/11/18 06:20 Potassium 3.9 mmol/L (3.6-5.0) 02/11/18 06:20 Chloride 108 mmol/L (98-107) H 02/11/18 06:20 Carbon Dioxide 26 mmol/L (21-33) 02/11/18 06:20 Anion Gap 10 (10-20) 02/11/18 06:20 BUN 10 mg/dL (7-21) 02/11/18 06:20 Creatinine 1.0 mg/dl (0.8-1.5) 02/11/18 06:20 Est GFR ( Amer) > 60 02/11/18 06:20 Est GFR (Non-Af Amer) > 60 02/11/18 06:20 Random Glucose 96 mg/dL (70-110) 02/11/18 06:20 Calcium 8.5 mg/dL (8.4-10.5) 02/11/18 06:20 Phosphorus 2.8 mg/dL (2.5-4.5) 02/10/18 07:30 Magnesium 2.0 mg/dL (1.7-2.2) 02/10/18 07:30 Total Bilirubin 0.3 mg/dL (0.2-1.3) 02/11/18 06:20 AST 34 U/L (17-59) 02/11/18 06:20 ALT 49 U/L (7-56) 02/11/18 06:20 Alkaline Phosphatase 36 U/L (38-126) L 02/11/18 06:20 Lactate Dehydrogenase 536 U/L (333-699) 02/10/18 20:54 Total Creatine Kinase 736 U/L (35-230) H 02/10/18 20:54 CK-MB (CK-2) 5.9 ng/mL (0.0-3.6) H 02/10/18 20:54 CK-MB (CK-2) % 0.8 % (2.5-3.0) L 02/10/18 20:54 Troponin I < 0.01 ng/mL 02/10/18 20:54 Total Protein 5.6 g/dL (5.8-8.3) L 02/11/18 06:20 Albumin 3.2 g/dL (3.0-4.8) 02/11/18 06:20 Globulin 2.5 gm/dL 02/11/18 06:20 Albumin/Globulin Ratio 1.3 (1.1-1.8) 02/11/18 06:20 Urine Color Yellow (YELLOW) 02/09/18 23:10 Urine Appearance Clear (CLEAR) 02/09/18 23:10 Urine pH 6.0 (4.7-8.0) 02/09/18 23:10 Ur Specific [place] 1.020 (1.005-1.035) 02/09/18 23:10 Urine Protein Negative mg/dL (<30 mg/dL) 02/09/18 23:10 Urine Glucose (UA) Negative mg/dL (NEGATIVE) 02/09/18 23:10 Urine Ketones 15 mg/dL (NEGATIVE) H 02/09/18 23:10 Urine Blood Negative (NEGATIVE) 02/09/18 23:10 Urine Nitrate Negative (NEGATIVE) 02/09/18 23:10 Urine Bilirubin Negative (NEGATIVE) 02/09/18 23:10 Urine Urobilinogen 0.2 E.U./dL (<1 E.U./dL) 02/09/18 23:10 Ur Leukocyte Esterase Negative Alba/uL (NEGATIVE) 02/09/18 23:10 Salicylates < 1 mg/dL (2.0-20.0) L 02/09/18 19:20 Urine Opiates Screen Negative (NEGATIVE) 02/09/18 23:10 Urine Methadone Screen Negative (NEGATIVE) 02/09/18 23:10 Acetaminophen < 10.0 ug/ml (10.0-20.0) L 02/09/18 19:20 Ur Barbiturates Screen Negative (NEGATIVE) 02/09/18 23:10 Ur Phencyclidine Scrn Negative (NEGATIVE) 02/09/18 23:10 Ur Amphetamines Screen Negative (NEGATIVE) 02/09/18 23:10 U Benzodiazepines Scrn Negative (NEGATIVE) 02/09/18 23:10 U Oth Cocaine Metabols Negative (NEGATIVE) 02/09/18 23:10 U Cannabinoids Screen Positive (NEGATIVE) H 02/09/18 23:10 Alcohol, Quantitative < 10 mg/dL (0-10) 02/09/18 19:20 - Hospital Course Hospital Course: Patient is a 32 year old male with past medical history that includes asthma and appendectomy who presented to [facility] ED reporting suicidal and homicidal ideations as well as polysubstance abuse. Patient was evaluated in ED and found to have elevated total CK. Patient was admitted for rhabdomyolysis and SI/HI. Psychiatry was consulted and evaluated the patient. Recommendations were appreciated and utilized. Patient denied suicidal ideation and homicidal ideation during admission and prior to discharge. Patient is well known to [facility] psychiatry unit. Patient had recent discharge from [facility] 02/08 after being treated for substance abuse. Patient was suspected to have walked from [facility] to [facility] upon discharge thus inducing elevated total CK. Patient was given IVF and electrolytes were repleted while in hospital. During admission patient reported abdominal discomfort. Of note patient reported taking up to 10 pills of naproxen every day for a week leading up to admission. Patient was advised against further NSAID use at this time and to take PPI for protective therapy. Abdominal and Pelvis CT was performed that was unremarkable for acute disease. Patient's diet was advanced as tolerated from liquid to soft. Patient was able to tolerate diet. Patient reportedly had diarrhea with in first 24 hours of admission. On day of discharge patient reported only 3 bowel movement of loose stool over a 24 hour period. Denied melena or bright red blood with in stool. Patient vital signs were stable and H/H remained stable throughout hospital course. Patient was given a prescription for protonix and told to follow up with a primary care physician and psychiatrist upon discharge. NSAID avoidance and substance abuse cessation counseling were offered to the patient throughout his stay. Discharge planning, medication reconciliation and follow up were discussed with patient. At time of discharge patient was hemodynamically stable and cleared from psychiatry stand point for discharge with outpatient follow up. - Date & Time of H&P Date of H&P: 03/11/18 Time of H&P: 23:34 Discharge Exam - Head Exam Head Exam: ATRAUMATIC, NORMAL INSPECTION, NORMOCEPHALIC - Eye Exam Eye Exam: EOMI, PERRL - ENT Exam ENT Exam: Mucous Membranes Moist - Neck Exam Neck exam: Full Rom - Respiratory Exam Respiratory Exam: Clear to PA & Lateral, NORMAL BREATHING PATTERN, UNREMARKABLE. absent: Wheezes, Stridor - Cardiovascular Exam Cardiovascular Exam: REGULAR RHYTHM, +S1, +S2 - GI/Abdominal Exam GI & Abdominal Exam: Normal Bowel Sounds, Soft, Tenderness (mild right sided abdomen ). absent: Firm, Guarding, Hernia, Rigid - Extremities Exam Extremities exam: normal capillary refill, pedal pulses present - Neurological Exam Neurological exam: Alert, Normal Gait, Oriented x3 - Psychiatric Exam Psychiatric exam: Normal Mood - Skin Skin Exam: Dry, Warm Additional comments: numerous old healed cut kowalski noted over entire patient body including extremities both upper and lower most notably Discharge Plan - Discharge Medications Prescriptions: Pantoprazole [Protonix EC Tab] 40 mg PO 0600 #14 ect - Follow Up Plan Condition: STABLE Disposition: HOME/ ROUTINE Instructions: Hypokalemia (DC), Hypokalemia (GEN), Suicide Prevention for Adults (DC), Suicide Prevention for Adults (GEN) Additional Instructions: Follow up with Psychiatry within one week upon discharge Maintain adequate fluid hydration Follow up with primary care physician within one to two weeks Take medications as prescribed to you Advance diet as tolerated <Adilia Turner - Last Filed: 02/11/18 16:28> Provider - Provider Date of Admission: 02/09/18 20:27 Attending physician: Adilia Turner MD Hospital Course - Lab Results Lab Results: Most Recent Lab Values WBC 5.4 10^3/ul (4.5-11.0) D 02/11/18 06:20 RBC 4.28 10^6/uL (3.5-6.1) 02/11/18 06:20 Hgb 13.1 g/dL (14.0-18.0) L 02/11/18 06:20 Hct 38.2 % (42.0-52.0) L 02/11/18 06:20 MCV 89.3 fl (80.0-105.0) 02/11/18 06:20 MCH 30.6 pg (25.0-35.0) 02/11/18 06:20 MCHC 34.3 g/dl (31.0-37.0) 02/11/18 06:20 RDW 13.2 % (11.5-14.5) 02/11/18 06:20 Plt Count 191 10^3/uL (120.0-450.0) 02/11/18 06:20 MPV 9.7 fl (7.0-11.0) 02/11/18 06:20 Gran % 56.9 % (50.0-68.0) 02/11/18 06:20 Lymph % (Auto) 29.3 % (22.0-35.0) 02/11/18 06:20 Weak[place] % (Auto) 8.4 % (1.0-6.0) H 02/11/18 06:20 Eos % (Auto) 5.0 % (1.5-5.0) 02/11/18 06:20 Baso % (Auto) 0.4 % (0.0-3.0) 02/11/18 06:20 Gran # 3.05 (1.4-6.5) 02/11/18 06:20 Lymph # (Auto) 1.6 (1.2-3.4) 02/11/18 06:20 [place] # (Auto) 0.5 (0.1-0.6) 02/11/18 06:20 Eos # (Auto) 0.3 (0.0-0.7) 02/11/18 06:20 Baso # (Auto) 0.02 K/mm3 (0.0-2.0) 02/11/18 06:20 Sodium 139 mmol/L (132-148) 02/11/18 06:20 Potassium 3.9 mmol/L (3.6-5.0) 02/11/18 06:20 Chloride 108 mmol/L (98-107) H 02/11/18 06:20 Carbon Dioxide 26 mmol/L (21-33) 02/11/18 06:20 Anion Gap 10 (10-20) 02/11/18 06:20 BUN 10 mg/dL (7-21) 02/11/18 06:20 Creatinine 1.0 mg/dl (0.8-1.5) 02/11/18 06:20 Est GFR ( Amer) > 60 02/11/18 06:20 Est GFR (Non-Af Amer) > 60 02/11/18 06:20 Random Glucose 96 mg/dL (70-110) 02/11/18 06:20 Calcium 8.5 mg/dL (8.4-10.5) 02/11/18 06:20 Phosphorus 2.8 mg/dL (2.5-4.5) 02/10/18 07:30 Magnesium 2.0 mg/dL (1.7-2.2) 02/10/18 07:30 Total Bilirubin 0.3 mg/dL (0.2-1.3) 02/11/18 06:20 AST 34 U/L (17-59) 02/11/18 06:20 ALT 49 U/L (7-56) 02/11/18 06:20 Alkaline Phosphatase 36 U/L (38-126) L 02/11/18 06:20 Lactate Dehydrogenase 536 U/L (333-699) 02/10/18 20:54 Total Creatine Kinase 736 U/L (35-230) H 02/10/18 20:54 CK-MB (CK-2) 5.9 ng/mL (0.0-3.6) H 02/10/18 20:54 CK-MB (CK-2) % 0.8 % (2.5-3.0) L 02/10/18 20:54 Troponin I < 0.01 ng/mL 02/10/18 20:54 Total Protein 5.6 g/dL (5.8-8.3) L 02/11/18 06:20 Albumin 3.2 g/dL (3.0-4.8) 02/11/18 06:20 Globulin 2.5 gm/dL 02/11/18 06:20 Albumin/Globulin Ratio 1.3 (1.1-1.8) 02/11/18 06:20 Urine Color Yellow (YELLOW) 02/09/18 23:10 Urine Appearance Clear (CLEAR) 02/09/18 23:10 Urine pH 6.0 (4.7-8.0) 02/09/18 23:10 Ur Specific [place] 1.020 (1.005-1.035) 02/09/18 23:10 Urine Protein Negative mg/dL (<30 mg/dL) 02/09/18 23:10 Urine Glucose (UA) Negative mg/dL (NEGATIVE) 02/09/18 23:10 Urine Ketones 15 mg/dL (NEGATIVE) H 02/09/18 23:10 Urine Blood Negative (NEGATIVE) 02/09/18 23:10 Urine Nitrate Negative (NEGATIVE) 02/09/18 23:10 Urine Bilirubin Negative (NEGATIVE) 02/09/18 23:10 Urine Urobilinogen 0.2 E.U./dL (<1 E.U./dL) 02/09/18 23:10 Ur Leukocyte Esterase Negative Alba/uL (NEGATIVE) 02/09/18 23:10 Salicylates < 1 mg/dL (2.0-20.0) L 02/09/18 19:20 Urine Opiates Screen Negative (NEGATIVE) 02/09/18 23:10 Urine Methadone Screen Negative (NEGATIVE) 02/09/18 23:10 Acetaminophen < 10.0 ug/ml (10.0-20.0) L 02/09/18 19:20 Ur Barbiturates Screen Negative (NEGATIVE) 02/09/18 23:10 Ur Phencyclidine Scrn Negative (NEGATIVE) 02/09/18 23:10 Ur Amphetamines Screen Negative (NEGATIVE) 02/09/18 23:10 U Benzodiazepines Scrn Negative (NEGATIVE) 02/09/18 23:10 U Oth Cocaine Metabols Negative (NEGATIVE) 02/09/18 23:10 U Cannabinoids Screen Positive (NEGATIVE) H 02/09/18 23:10 Alcohol, Quantitative < 10 mg/dL (0-10) 02/09/18 19:20 Attending/Attestation - Attestation I have personally seen and examined this patient.: Yes I have fully participated in the care of the patient.: Yes I have reviewed all pertinent clinical information, including history, physical exam and plan: Yes Notes (Text): 02/11/18 16:23 Medical record note made by the resident after discussion with my direction and input after the patient was personally seen and examined by me. I have reviewed the chart and agree that the record accurately reflects by personal performance of the history, physical exam, data review, and medical decision-making, in the course for the patient. I have also personally directed the plan of care. 32 yrs old male with PMH of Drug abuse was admitted with mild Rhabdomylosis and suicidal ideation.His CK level has improved.Renal functions are stable.He was c/ o abdominal pain and dairrhea.His CT scan of abdomen and Pelvis was negative for acute pathology.He was evaluated by surgery for abdominal pain.His abdominal pain has improved.Diarrhea has resolved.Hemoglobin is stable.Patient is tolerating diet.He has been started on oral PPI. He was evaluated by Psychiatry and was cleared for discharge.He has history of aggressive behaviour at the time of discharge and is well known to Psychiatry service. The issue of ongoing drug abuse was discussed in detail with him. Prognosis is guarded due to ongoing drug abuse and non compliance.
--- NOTE | 2018-02-11 16:05 | PCM.RRT ---
<Gabriella Hooper - Last Filed: 02/11/18 15:51> HYDRAULIC PRESS OPERATOR Nurse Assessment - Situation Date: 02/11/18 Time HYDRAULIC PRESS OPERATOR was called: 15:41 (Code mao) HYDRAULIC PRESS OPERATOR Responder Arrival Time: 15:41 HYDRAULIC PRESS OPERATOR Location:: [address] [place] Room Number: 568-2 I.Reason for HYDRAULIC PRESS OPERATOR - A) Acute Change in Patient: Subjective: PGY-[address] Turner CC: Pt cutting himself in bathroom S: When pt was told of discharge, he locked himself in the bathroom and used a piece of broken plastic and cut his Left forearm. O: VS stable per 2pm recording GEN: NAD HEENT: EOMI Ext: L arm with horizontal and verticals cutting x 3-4 kowalski, each about 2 inch in length, mainly at antecubital fossa area. The kowalski was not deep, similar to excoriations. No profuse bleeding observe. Gait: Stable Neuro: AAOx3 A/P: antisocial personality disorder and malingering - Pt was medically cleared for discharge per primary team - Per Psych: escort patient out of the building. His intention was to get food and penitentiary. - Pt was offered the discharge paper, but he refused to accept <Adilia Turner - Last Filed: 02/11/18 16:29> Attending/Attestation - Attestation I have personally seen and examined this patient.: Yes I have fully participated in the care of the patient.: Yes I have reviewed all pertinent clinical information, including history, physical exam and plan: Yes
--- NOTE | 2018-02-11 16:26 | CP.PCM.PCO ---
Addendum Addendum: 02/11/18 16:23 as per reports from medical team, patient locked himself into the bathroom, tried to cut himself with the plastic, such behavior started when patient realized that he will be discharged, patient presented to be manipulative, secondary gain cannot be excluded rather obvious, pt still does not meet a criteria for admission to psych. pt was escorted from the hospital. as per security at present moment pt is smoking outside and enjoying his cigarette. no signs of agitation or acting irrationally. discussed with medical attending .
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
== END 2018-02-11 17:03 | disposition home or self-care (01) ==
LOC: ED 19:12 → MERGE 20:27 → ERH 20:27 → 5RNO 22:35
PROVIDERS: ADMIT Internal Medicine; ATTEND Internal Medicine
DX: M62.82 Rhabdomyolysis (principal); E87.6 Hypokalemia; J45.909 Unspecified asthma, uncomplicated; R45.851 Suicidal ideations; F14.10 Cocaine abuse, uncomplicated; F12.10 Cannabis abuse, uncomplicated; R45.850 Homicidal ideations; F17.210 Nicotine dependence, cigarettes, uncomplicated; Z91.19 Patient's noncompliance with other medical treatment and regimen
CPT/HCPCS: 36415; 71045; 74176; 80053; 80320; 80324; 80329; 80345; 80346; 80349; 80353; 80358; 80361; 81003; 82550; 82553; 83615; 83735; 83992; 84100; 84484; 85025; 93005; 93970; 99284; G0378; J7040